=== PATIENT | male | born 1950 | race Two or more races ===

== ENCOUNTER 2025-01-26 06:09 | Day surgery (SDC) | payer OTHER ==
[2025-01-19 10:43] VITALS: BP 150/90
[~2025-01-26] VITALS: Ht 182.9 cm; Wt 90.7 kg
[~2025-01-26 06:09] MED LIST: ASPIRIN1 GM; DIOVAN160 M1 PO; FLECAINIDE ACET50 MG PO; LIPITOR80 MG; ZOLOFT100 MG
[2025-01-26] MEDS ORDERED: CEFTRIAXONE SODIUM 2,000 MG VIAL IV SCH (17:45)
[2025-01-26] MEDS ORDERED: METRONIDAZOLE/SODIUM CHLORIDE 500 MG/100 ML PIGGYBACK IV SCH (17:45)
[2025-01-26] MEDS ORDERED: BUPIVACAINE HCL 30 ML VIAL IJ SCH (17:45)
[2025-01-26] MEDS ORDERED: CELEBREX200MG PO (18:18)
[2025-01-26] MEDS ORDERED: NEURONTIN300 MG PO (18:18)
[2025-01-26] MEDS ORDERED: POLY119PG PO (18:18)
[2025-01-26] MEDS ORDERED: PERCOCET 5-3251 EACH PO (18:18)
[2025-01-26] MEDS ORDERED: SUGAMMADEX SODIUM 200 MG/2 ML VIAL IV ONE (18:45)
== END 2025-01-26 20:25 | disposition home or self-care (01) ==
LOC: CIR.AMB 06:09
PROVIDERS: ATTEND Surgery
DX: K40.20 Bilateral inguinal hernia, without obstruction or gangrene, not specified as recurrent (principal)
CPT/HCPCS: 49650; C1781